=== PATIENT | female | born 1960 | race African-American/Black ===

== ENCOUNTER → 2018-05-05 | Outpatient (CLI) | payer MEDICARE ==
--- NOTE | 2018-05-05 17:02 | RAD ---
Metastatic skeletal survey, 05/05/2018: History: Back and hip pain, multiple myeloma Multiple images of the bony skeleton were obtained with the following findings delineated: 1. A PA view of the chest reveals no rib abnormality. The heart size is normal. The lungs are clear. 2. A lateral view of the skull reveals no lytic lesion. 3. AP and lateral views of the spine reveal moderate scattered degenerative changes. There is mild anterolisthesis at L3-4 and L4-5 due to facet joint arthropathy. Similar findings were present on the 10/27/2015 exam. No fracture or destructive bony lesion is seen. 4. An AP view of the pelvis reveals no lytic lesion. 5. AP views of both humeri and forearms reveal no fracture or destructive bony lesion. 6. AP views of views of both femurs and lower legs reveal no fracture or destructive bony lesion. IMPRESSION: 1. Moderate multilevel degenerative changes in the spine. 2. No myelomatous lesions are identified.
== END | disposition home or self-care (01) ==
LOC: RAD 14:21
PROVIDERS: ATTEND Internal Medicine Hematology & Oncology
DX: M47.816 Spondylosis without myelopathy or radiculopathy, lumbar region (principal); D47.2 Monoclonal gammopathy; M25.559 Pain in unspecified hip
CPT/HCPCS: 77075